=== PATIENT | female | born 1935 | race American Indian/Alaskan Native ===

== ENCOUNTER 2018-05-13 16:53 | Observation (INO) | payer MEDICARE ==
[2018-05-13 16:53] VITALS: BMI 107.6
--- NOTE | 2018-05-13 17:35 | C.PDOC ---
History Of Present Illness 83 y/o female pt with hx of DVT presents to the ER c/o SOB for x1 week. Associated sx includes leg swelling. Pt denies chest pain. Pt takes Coumadin for her DVT. Pt also notes that SOB is worse when walking. Time Seen by Provider: 05/13/18 17:25 Chief Complaint (Nursing): Shortness Of Breath History Per: Patient History/Exam Limitations: no limitations Onset/Duration Of Symptoms: Days (x1 week) Current Symptoms Are (Timing): Still Present Past Medical History Reviewed: Historical Data, Nursing Documentation, Vital Signs Vital Signs: Last Vital Signs Temp 98.4 F 05/13/18 17:03 Pulse 132 H 05/13/18 17:03 Resp 20 05/13/18 17:03 BP 189/83 H 05/13/18 17:03 Pulse Ox 95 05/13/18 17:03 - Medical History PMH: Anemia (Anemia of Chronic disese), Arthritis, Asthma, Atrial Fibrillation, Bronchitis, Deep Vein Thrombosis, HTN, Hypercholesterolemia, Peripheral Edema, Pneumonia (2007), Pulmonary Embolism (subsegmental in 2014. 3 episodes of leg DVT s/p IVC filter ), End Stage Renal Disease, Chronic Kidney Disease, Rheumatoid Arthritis - [facility] Procedures CENTRAL VENOUS CATHETER PLACEMENT WITH GUIDANCE (02/08/15) ESOPHAGOGASTRODUODENOSCOPY [EGD] W/CLOSED BIOPSY (12/16/14) EXCISION OF SACRUM, OPEN APPROACH (03/26/15) INSERTION OF INFUSION DEV INTO SUP VENA CAVA, PERC APPROACH (07/29/15) INTRODUCTION OF SERUM/TOX/VACCINE INTO MUSCLE, PERC APPROACH (03/14/15) PLICATION OF VENA CAVA (11/28/14) SERUM TRANSFUSION NEC (11/28/14) TRANSFER BUTTOCK SUBCU/FASCIA W SKIN, SUBCU, FASCIA, OPEN (03/26/15) Family History: States: Unknown Family Hx - Social History Hx Tobacco Use: No Hx Alcohol Use: No Hx Substance Use: No - Immunization History Hx Tetanus Toxoid Vaccination: No Hx Influenza Vaccination: (not sure) Hx Pneumococcal Vaccination: Yes (12/16/2014) Review Of Systems Except As Marked, All Systems Reviewed And Found Negative. Respiratory: Positive for: Shortness of Breath Physical Exam - Physical Exam Appears: Well, Non-toxic, No Acute Distress Skin: Normal Color, Warm, Dry Head: Normacephalic Eye(s): bilateral: Normal Inspection, PERRL, EOMI Oral Mucosa: Moist Throat: Normal Chest: Symmetrical Cardiovascular: Rhythm Regular, No Murmur Respiratory: Rales (base) Gastrointestinal/Abdominal: Soft, No Tenderness Extremity: Pedal Edema (+2, b/l ) Neurological/Psych: Oriented x3, Normal Speech ED Course And Treatment - Laboratory Results Result Diagrams: 05/13/18 17:39 05/13/18 17:39 ECG Interpretation: Normal Interpretation Of ECG: normal interval; normal axis; non-specific ST/T waves Rate From EC O2 Sat by Pulse Oximetry: 95 (RA) Pulse Ox Interpretation: Normal Medical Decision Making Medical Decision Making: Impression: SOB Plans: -- EKG -- chem labs -- blood work -- CXR Disposition Discussed With : Justin Solis DO Doctor Will See Patient In The: Hospital Counseled Patient/Family Regarding: Studies Performed, Diagnosis - Disposition Disposition Time: 19:00 Condition: STABLE Forms: [facility] (Bel[place]ian) - Clinical Impression Clinical Impression: SOB (shortness of breath) - Scribe Statement The provider has reviewed the documentation as recorded by the Scribe Daria Hendrix Provider Attestation: All medical record entries made by the Scribe were at my direction and personally dictated by me. I have reviewed the chart and agree that the record accurately reflects my personal performance of the history, physical exam, medical decision making, and the department course for this patient. I have also personally directed, reviewed, and agree with the discharge instructions and disposition. Physician Patient Turnover Patient Signed Over To: Justin Solis DO Handoff Comments: pending ct chest r/o pe, reevaluation and disposition.
[2018-05-13 17:42] LABS: BASO # 0.1 K/uL (0.0-0.2); BASO % 0.8 % (0.0-2.0); EOS # 0.2 K/uL (0.0-0.7); EOS % 2.1 % (0.0-4.0); HEMOGLOBIN 13.8 g/dL (11.0-16.0); LYMPH # 1.7 K/uL (1.0-4.3); LYMPH % 19.3 % (20.0-40.0); MEAN CELL VOLUME 97.1 fL (81.0-99.0); MEAN CORPUSCULAR HGB CONC 32.9 g/dL (33.0-37.0); MEAN PLATELET VOLUME 9.7 fL (7.2-11.7); MONO # 0.9 K/uL (0.0-0.8); MONO % 10.5 % (0.0-10.0); NEUT % 67.3 % (50.0-75.0); RBC 4.31 Mil/uL (3.80-5.20); RED CELL DISTRIBUTION WIDTH 14.6 % (11.5-14.5); WHITE BLOOD COUNT 8.9 K/uL (4.8-10.8)
[2018-05-13 17:54] LABS: INR 1.4; PROTHROMBIN TIME 14.8 SECONDS (9.7-12.2)
[2018-05-13 18:02] LABS: ALB/GLOB RATIO 1.3 (1.0-2.1); ALBUMIN 4.2 g/dL (3.5-5.0); CALCIUM 9.6 mg/dl (8.6-10.4)
[2018-05-13 18:10] LABS: TROPONIN I 0.014 ng/mL (0.00-0.120)
[2018-05-13] MEDS ORDERED: Iohexol 300 100 ML IJ ONE (18:47)
[2018-05-13] MEDS ORDERED: MethylPREDNISolone 40 mg Vial IVP STA (22:20)
[2018-05-13] MEDS ORDERED: guaiFENesin 200 mg/10 ml Syrup UD PO PRN (22:21)
[2018-05-14 00:57] LABS: CK-MB 5.29 ng/mL (0.0-3.38); TROPONIN I 0.014 ng/mL (0.00-0.120)
[2018-05-14] MEDS: Albuterol-Ipratrop 3 mg / 0.5 (3 ml) UD INH SCH ×4 (01:30→20:07)
[2018-05-14 06:23] LABS: INR 1.4; PROTHROMBIN TIME 15.3 SECONDS (9.7-12.2)
--- NOTE | 2018-05-14 08:37 | CT ---
Date of service: 05/13/2018 PROCEDURE: CT Chest with contrast (Pulmonary Angiogram) HISTORY: sob COMPARISON: None available. TECHNIQUE: Axial computed tomography images were obtained of the chest in the pulmonary arterial phase of enhancement. Coronal and sagittal reformatted images were created and reviewed. Intravenous contrast dose: Radiation dose: Total exam DLP = 460.63 mGy-cm. This CT exam was performed using one or more of the following dose reduction techniques: Automated exposure control, adjustment of the mA and/or kV according to patient size, and/or use of iterative reconstruction technique. FINDINGS: PULMONARY ARTERIES: Unremarkable. No pulmonary embolism. AORTA: No acute findings. No thoracic aortic aneurysm. No aortic atherosclerotic calcification or mural plaque present. LUNGS: minimal bibasilar fibrotic/disc atelectatic changes. PLEURAL SPACES: Unremarkable. No effusion or pneumothorax. HEART: Unremarkable. No cardiomegaly. No significant pericardial effusion. LYMPH NODES: No lymphadenopathy. BONES, CHEST WALL: Unremarkable. No fracture or destructive lesion OTHER FINDINGS: Unremarkable. IMPRESSION: Minimal bibasilar fibrotic changes and disc of LS static changes. No evidence of pulmonary embolism.
[2018-05-14] MEDS: Pantoprazole 40 mg EC Tab PO SCH (09:58)
[2018-05-14] MEDS: MethylPREDNISolone 40 mg Vial IM SCH ×2 (09:59→21:03)
[2018-05-14] MEDS ORDERED: Enoxaparin 40 mg Syringe SC SCH ×2 (10:00)
--- NOTE | 2018-05-14 10:44 | RAD ---
Date of service: 05/13/2018 PROCEDURE: CHEST RADIOGRAPH, 1 VIEW HISTORY: SOB COMPARISON: 07/30/2015. FINDINGS: LUNGS: The lungs are well inflated and clear. There is moderate pulmonary venous congestion. PLEURA: No pneumothorax or pleural effusion. CARDIOVASCULAR: Mild cardiomegaly. There are mild aortic atherosclerotic calcifications present. OSSEOUS STRUCTURES: Within normal limits for the patient's age. VISUALIZED UPPER ABDOMEN: Normal. OTHER FINDINGS: None. IMPRESSION: No active pulmonary disease.
--- NOTE | 2018-05-14 12:12 | CARD ---
APPROVED REPORT Date of service: 05/13/2018 EKG Measurement Heart [id number] <Conclusion> Normal sinus rhythm Minimal voltage criteria for LVH, may be normal variant Nonspecific T wave abnormality Abnormal ECG
--- NOTE | 2018-05-14 12:27 | CP.PCM.HP ---
Past Patient History - Infectious Disease Hx of Infectious Diseases: None - Past Medical History & Family History Past Medical History?: Yes - Past Social History Smoking Status: Never Smoked - CARDIAC Hx Atrial Fibrillation: Yes Hx Hypercholesterolemia: Yes Hx Hypertension: Yes Hx Peripheral Edema: Yes - PULMONARY Hx Asthma: Yes Hx Bronchitis: Yes Hx Pneumonia: Yes (2007) Hx Pulmonary Embolism: Yes (subsegmental in 2015. 3 episodes of leg DVT s/p IVC filter ) - NEUROLOGICAL Hx Neurological Disorder: No - HEENT Hx HEENT Problems: No - RENAL Hx Chronic Kidney Disease: Yes - ENDOCRINE/METABOLIC Hx Endocrine Disorders: Yes Hx Diabetes Mellitus Type 2: Yes - HEMATOLOGICAL/ONCOLOGICAL Hx Anemia: Yes (Anemia of Chronic disese) - INTEGUMENTARY Hx Dermatological Problems: Yes Other/Comment: bedsore sacral area. - MUSCULOSKELETAL/RHEUMATOLOGICAL Hx Arthritis: Yes Hx Rheumatoid Arthritis: Yes - GASTROINTESTINAL Hx Gastrointestinal Disorders: No - GENITOURINARY/GYNECOLOGICAL Hx Genitourinary Disorders: Yes Hx Incontinence: Yes - PSYCHIATRIC Hx Substance Use: No - SURGICAL HISTORY Hx Surgeries: Yes Other/Comment: ivc filter - ANESTHESIA Hx Anesthesia: Yes Hx Anesthesia Reactions: No Hx Malignant Hyperthermia: No Meds Allergies/Adverse Reactions: Allergies Allergy/AdvReac Type Severity Reaction Status Date / Time No Known Allergies Allergy Verified 07/27/15 15:55 Results - Vital Signs Recent Vital Signs: Last Vital Signs Temp 98.0 F 05/14/18 07:00 Pulse 67 05/14/18 07:33 Resp 18 05/14/18 07:00 BP 150/78 05/14/18 07:00 Pulse Ox 99 05/14/18 12:25 - Labs Result Diagrams: 05/13/18 17:39 05/13/18 17:39 Labs: Laboratory Results - last 24 hr 05/13/18 05/13/18 05/13/18 17:39 17:39 17:39 WBC 8.9 D RBC 4.31 Hgb 13.8 D Hct 41.9 MCV 97.1 MCH 32.0 H MCHC 32.9 L RDW 14.6 H Plt Count 185 MPV 9.7 Neut % (Auto) 67.3 Lymph % (Auto) 19.3 L [place] % (Auto) 10.5 H Eos % (Auto) 2.1 Baso % (Auto) 0.8 Neut # (Auto) 6.0 Lymph # (Auto) 1.7 [place] # (Auto) 0.9 H Eos # (Auto) 0.2 Baso # (Auto) 0.1 PT 14.8 H INR 1.4 APTT 42 H D-Dimer, Quantitative 247 H Sodium 142 Potassium 3.3 L Chloride 105 Carbon Dioxide 28 Anion Gap 12 BUN 29 H Creatinine 1.1 Est GFR ( Amer) 57 Est GFR (Non-Af Amer) 47 POC Glucose (mg/dL) Random Glucose 77 Calcium 9.6 Magnesium 2.2 Total Bilirubin 0.4 AST 64 H ALT 25 Alkaline Phosphatase 109 Total Creatine Kinase CK-MB (Mass) Troponin I 0.0140 NT-Pro-B Natriuret Pep 109 Total Protein 7.6 Albumin 4.2 Globulin 3.3 Albumin/Globulin Ratio 1.3 05/13/18 05/14/18 05/14/18 17:53 00:27 06:04 WBC RBC Hgb Hct MCV MCH MCHC RDW Plt Count MPV Neut % (Auto) Lymph % (Auto) [place] % (Auto) Eos % (Auto) Baso % (Auto) Neut # (Auto) Lymph # (Auto) [place] # (Auto) Eos # (Auto) Baso # (Auto) PT 15.3 H INR 1.4 APTT D-Dimer, Quantitative Sodium Potassium Chloride Carbon Dioxide Anion Gap BUN Creatinine Est GFR ( Amer) Est GFR (Non-Af Amer) POC Glucose (mg/dL) 91 Random Glucose Calcium Magnesium Total Bilirubin AST ALT Alkaline Phosphatase Total Creatine Kinase 466 H CK-MB (Mass) 5.29 H Troponin I 0.0140 NT-Pro-B Natriuret Pep Total Protein Albumin Globulin Albumin/Globulin Ratio
--- NOTE | 2018-05-14 13:14 | CP.PCM.CON ---
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 Shortness of breath worsens with walking. Patient reports leg swelling. Denies fever, chest pain, cough. Medications: Symbicort 2 puff BID, Albuterol 1-2puff q4h, Spiriva 1 inh q12h, zafiralukast 20 qhs, calcitonin, omeprazole 40mg, ASA 81mg, atorvastatin 10mg, irbesartan 150mg, Coumadin 4mg. Allergies: NKDA Surgery: IVC filter 2014 Imaging 05/13 EKG: NSR, t wave abnormalities 05/13 CXR: Moderate pulmonary venous congestion, good inflation, no pneumothorax or pulmonary effusion 05/[address]: no PE, bibasilar fibrotic changes, no effusion or pneumothorax Review of Systems - Review of Systems All systems: reviewed and no additional remarkable complaints except (shortness of breath) Past Patient History - Infectious Disease Hx of Infectious Diseases: None - Past Medical History & Family History Past Medical History?: Yes - Past Social History Smoking Status: Never Smoked - CARDIAC Hx Atrial Fibrillation: Yes Hx Hypercholesterolemia: Yes Hx Hypertension: Yes Hx Peripheral Edema: Yes - PULMONARY Hx Asthma: Yes Hx Bronchitis: Yes Hx Pneumonia: Yes (2007) Hx Pulmonary Embolism: Yes (subsegmental in 2014. 3 episodes of leg DVT s/p IVC filter ) - NEUROLOGICAL Hx Neurological Disorder: No - HEENT Hx HEENT Problems: No - RENAL Hx Chronic Kidney Disease: Yes - ENDOCRINE/METABOLIC Hx Endocrine Disorders: Yes Hx Diabetes Mellitus Type 2: Yes - HEMATOLOGICAL/ONCOLOGICAL Hx Anemia: Yes (Anemia of Chronic disese) - INTEGUMENTARY Hx Dermatological Problems: Yes Other/Comment: bedsore sacral area. - MUSCULOSKELETAL/RHEUMATOLOGICAL Hx Arthritis: Yes Hx Rheumatoid Arthritis: Yes - GASTROINTESTINAL Hx Gastrointestinal Disorders: No - GENITOURINARY/GYNECOLOGICAL Hx Genitourinary Disorders: Yes Hx Incontinence: Yes - PSYCHIATRIC Hx Substance Use: No - SURGICAL HISTORY Hx Surgeries: Yes Other/Comment: ivc filter - ANESTHESIA Hx Anesthesia: Yes Hx Anesthesia Reactions: No Hx Malignant Hyperthermia: No Meds Allergies/Adverse Reactions: Allergies Allergy/AdvReac Type Severity Reaction Status Date / Time No Known Allergies Allergy Verified 07/27/15 15:55 - Medications Medications: Current Medications Albuterol/Ipratropium (Duoneb 3 Mg/0.5 Mg (3 Ml) Ud) 3 ml INH RQ6 [facility] Last Admin: 05/14/18 08:11 Dose: 3 ml Aspirin (Ecotrin) 81 mg PO DAILY [facility] Last Admin: 05/14/18 09:59 Dose: 81 mg Guaifenesin (Robitussin) 200 mg PO Q4H PRN PRN Reason: Cough and congestion Losartan Potassium (Cozaar) 50 mg PO DAILY [facility] Last Admin: 05/14/18 09:58 Dose: 50 mg Methylprednisolone (Solu-Medrol) 40 mg IM Q12 [facility] Last Admin: 05/14/18 09:59 Dose: 40 mg Pantoprazole Sodium (Protonix Ec Tab) 40 mg PO DAILY [facility] Last Admin: 05/14/18 09:58 Dose: 40 mg Rosuvastatin Calcium (Crestor) 5 mg PO HS [facility] Tiotropium [place] (Spiriva Inhalation Handihaler Device) 1 inhaler INH Q12 [facility] Warfarin Sodium (Coumadin) 4 mg PO 1800 [facility] Stop: 05/14/18 18:01 Physical Exam - Head Exam Head Exam: ATRAUMATIC, NORMOCEPHALIC - ENT Exam ENT Exam: Mucous Membranes Moist - Neck Exam Neck exam: Positive for: Normal Inspection - Respiratory Exam Respiratory Exam: Clear to Auscultation Bilateral - Cardiovascular Exam Cardiovascular Exam: REGULAR RHYTHM Results - Vital Signs Recent Vital Signs: Last Vital Signs Temp 98.0 F 05/14/18 07:00 Pulse 67 05/14/18 07:33 Resp 18 05/14/18 07:00 BP 150/78 05/14/18 07:00 Pulse Ox 99 05/14/18 12:25 - Labs Result Diagrams: 05/13/18 17:39 05/13/18 17:39 Labs: Laboratory Results - last 24 hr 05/13/18 05/13/18 05/13/18 17:39 17:39 17:39 WBC 8.9 D RBC 4.31 Hgb 13.8 D Hct 41.9 MCV 97.1 MCH 32.0 H MCHC 32.9 L RDW 14.6 H Plt Count 185 MPV 9.7 Neut % (Auto) 67.3 Lymph % (Auto) 19.3 L [place] % (Auto) 10.5 H Eos % (Auto) 2.1 Baso % (Auto) 0.8 Neut # (Auto) 6.0 Lymph # (Auto) 1.7 [place] # (Auto) 0.9 H Eos # (Auto) 0.2 Baso # (Auto) 0.1 PT 14.8 H INR 1.4 APTT 42 H D-Dimer, Quantitative 247 H Sodium 142 Potassium 3.3 L Chloride 105 Carbon Dioxide 28 Anion Gap 12 BUN 29 H Creatinine 1.1 Est GFR ( Amer) 57 Est GFR (Non-Af Amer) 47 POC Glucose (mg/dL) Random Glucose 77 Calcium 9.6 Magnesium 2.2 Total Bilirubin 0.4 AST 64 H ALT 25 Alkaline Phosphatase 109 Total Creatine Kinase CK-MB (Mass) Troponin I 0.0140 NT-Pro-B Natriuret Pep 109 Total Protein 7.6 Albumin 4.2 Globulin 3.3 Albumin/Globulin Ratio 1.3 05/13/18 05/14/18 05/14/18 17:53 00:27 06:04 WBC RBC Hgb Hct MCV MCH MCHC RDW Plt Count MPV Neut % (Auto) Lymph % (Auto) [place] % (Auto) Eos % (Auto) Baso % (Auto) Neut # (Auto) Lymph # (Auto) [place] # (Auto) Eos # (Auto) Baso # (Auto) PT 15.3 H INR 1.4 APTT D-Dimer, Quantitative Sodium Potassium Chloride Carbon Dioxide Anion Gap BUN Creatinine Est GFR ( Amer) Est GFR (Non-Af Amer) POC Glucose (mg/dL) 91 Random Glucose Calcium Magnesium Total Bilirubin AST ALT Alkaline Phosphatase Total Creatine Kinase 466 H CK-MB (Mass) 5.29 H Troponin I 0.0140 NT-Pro-B Natriuret Pep Total Protein Albumin Globulin Albumin/Globulin Ratio Assessment & Plan (1) Asthma exacerbation Status: Acute Comment: CTA negative for pulmonary embolism. Nebulizer treatment. Inhaled steroids. Peak flow q. shift (2) Shortness of breath Status: Chronic
--- NOTE | 2018-05-14 15:46 | HP ---
CHIEF COMPLAINT: Leg edema. HISTORY OF PRESENT ILLNESS: This is an 83-year-old female with past medical history significant for borderline diabetes, hypertension, hyperlipidemia, atrial fibrillation, DVT, in her usual status of diana. She is ambulatory and independent in activities of daily living. She came in because of leg swelling. She denies any nausea or vomiting. She denies any chest pain. She denies any dyspnea on exertion, orthopnea, or PND. She denies any polyuria, polydipsia, or polyphagia. She denies any hematuria or pyuria. She denies any sneezing, itchy eyes, or itchy nose. PAST MEDICAL HISTORY: Positive for hypertension, COPD, hyperlipidemia, GERD, osteoarthritis, atrial fibrillation on Coumadin. SOCIAL HISTORY: Nonsmoker, non-EtOH user. FAMILY HISTORY: Noncontributory. PHYSICAL EXAMINATION: GENERAL: An elderly female, in no acute distress. VITAL SIGNS: Blood pressure 150/78, pulse 72, respiratory rate 18, temperature 98. SKIN: No rashes. No bruises. No purpura. No petechiae. HEENT: Atraumatic, normocephalic. Negative pallor. Negative jaundice. Extraocular movements are intact. NECK: Supple. No JVD. No lymph node. No thyromegaly. No carotid bruits. CHEST WALL: Bilateral symmetrical expansion. LUNGS: Clear. CARDIOVASCULAR SYSTEM: S1 and S2 regular. No heave. No thrill. ABDOMEN: Soft. Nontender. Bowel sounds are positive. RECTAL AND PELVIC: Deferred. EXTREMITIES: +2 nonpitting edema. No calf tenderness. No swelling. CENTRAL NERVOUS SYSTEM: Awake, alert, oriented x3. ASSESSMENT: 1. Leg edema, swelling. Rule out deep venous thrombosis. 2. Hypertension, poorly controlled. 3. Atrial fibrillation. 4. Chronic obstructive pulmonary disease. PLAN: Venous Doppler. STAT CT of the angio is negative. Monitor the patient. Wai Leiva MD
--- NOTE | 2018-05-14 16:48 | VASCLAB ---
Date of service: 05/14/2018 PROCEDURE: Lower Extremity Venous Duplex Exam. HISTORY: dvt PRIORS: None. TECHNIQUE: Bilateral common femoral, femoral, popliteal and posterior tibial, peroneal and great saphenous veins were evaluated. Flow was assessed with color Doppler, compressibility, assessment of phasic flow and augmentation response. Report prepared by CASSY Espinal, RVT FINDINGS: RIGHT: 1. Common Femoral Vein: 1.1. Compressibility - Fully compressible: Thrombus - None : Flow - Phasic: Augmentation -Normal: Reflux - None. 2. Femoral Vein: 2.1. Compressibility - Fully compressible: Thrombus - None : Flow - Phasic: Augmentation -Normal: Reflux - None. 3. Popliteal Vein: 3.1. Compressibility - Partial: Thrombus - Chronic : Flow - Reduced : Augmentation -Reduced: Reflux - None. 4. Posterior Tibial Vein: 4.1. Compressibility - Fully compressible: Thrombus - None: Flow - Phasic: Augmentation -Normal: Reflux - None. 5. Peroneal Vein: 5.1. Compressibility - Fully compressible: Thrombus - None: Flow - Phasic: Augmentation -Normal: Reflux - None. 6. Great Saphenous Vein: 6.1. Compressibility - Fully compressible: Thrombus - None: Flow - Phasic: Augmentation - Normal: Reflux - None. LEFT: 1. Common Femoral Vein: 1.1. Compressibility - Fully compressible: Thrombus - None: Flow - Phasic: Augmentation -Normal: Reflux - None. 2. Femoral Vein: 2.1. Compressibility - Fully compressible: Thrombus - None: Flow - Phasic: Augmentation -Normal: Reflux - None. 3. Popliteal Vein: 3.1. Compressibility - Fully compressible: Thrombus - None : Flow - Phasic: Augmentation -Normal: Reflux - None. 4. Posterior Tibial Vein: 4.1. Compressibility - Fully compressible: Thrombus - None: Flow - Phasic: Augmentation -Normal: Reflux - None. 5. Peroneal Vein: 5.1. Compressibility - Fully compressible: Thrombus - None: Flow - Phasic: Augmentation -Normal: Reflux - None. 6. Great Saphenous Vein: 6.1. Compressibility - Fully compressible: Thrombus - None: Flow - Phasic: Augmentation - Normal: Reflux - None. OTHER FINDINGS: VERONICA Brandt notified about the findings. 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 Left: No evidence of deep or superficial vein thrombosis of the left lower extremity. Normal valve function noted of the left side.
--- NOTE | 2018-05-14 22:07 | CP.PCM.CON ---
History of Present Illness - History of Present Illness History of Present Illness: CC: Dyspnea 83 y/o female pt with hx of DVT presents to the ER c/o SOB for x1 week. Associated sx includes leg swelling. Pt denies chest pain. Pt takes Coumadin for her DVT. Pt also notes that SOB is worse when walking. Chief Complaint (Nursing): Shortness Of Breath History Per: Patient History/Exam Limitations: no limitations Onset/Duration Of Symptoms: Days (x1 week) Current Symptoms Are (Timing): Still Present Past Medical History Reviewed: Historical Data, Nursing Documentation, Vital Signs Vital Signs: Last Vital Signs Temp 98.4 F 05/13/18 17:03 Pulse 132 H 05/13/18 17:03 Resp 20 05/13/18 17:03 BP 189/83 H 05/13/18 17:03 Pulse Ox 95 05/13/18 17:03 - Medical History PMH: Anemia (Anemia of Chronic disese), Arthritis, Asthma, Atrial Fibrillation, Bronchitis, Deep Vein Thrombosis, HTN, Hypercholesterolemia, Peripheral Edema, Pneumonia (2007), Pulmonary Embolism (subsegmental in 2014. 3 episodes of leg DVT s/p IVC filter ), End Stage Renal Disease, Chronic Kidney Disease, Rheumatoid Arthritis - [facility] Procedures CENTRAL VENOUS CATHETER PLACEMENT WITH GUIDANCE (02/08/15) ESOPHAGOGASTRODUODENOSCOPY [EGD] W/CLOSED BIOPSY (12/16/14) EXCISION OF SACRUM, OPEN APPROACH (03/26/15) INSERTION OF INFUSION DEV INTO SUP VENA CAVA, PERC APPROACH (07/29/15) INTRODUCTION OF SERUM/TOX/VACCINE INTO MUSCLE, PERC APPROACH (03/14/15) PLICATION OF VENA CAVA (11/28/14) SERUM TRANSFUSION NEC (11/28/14) TRANSFER BUTTOCK SUBCU/FASCIA W SKIN, SUBCU, FASCIA, OPEN (03/26/15) Family History: States: Unknown Family Hx - Social History Hx Tobacco Use: No Hx Alcohol Use: No Hx Substance Use: No - Immunization History Hx Tetanus Toxoid Vaccination: No Hx Influenza Vaccination: (not sure) Hx Pneumococcal Vaccination: Yes (12/16/2014) Review Of Systems Except As Marked, All Systems Reviewed And Found Negative. Respiratory: Positive for: Shortness of Breath Physical Exam - Physical Exam Appears: Well, Non-toxic, No Acute Distress Skin: Normal Color, Warm, Dry Head: Normacephalic Eye(s): bilateral: Normal Inspection, PERRL, EOMI Oral Mucosa: Moist Throat: Normal Chest: Symmetrical Cardiovascular: Rhythm Regular, No Murmur Respiratory: Rales (base) Gastrointestinal/Abdominal: Soft, No Tenderness Extremity: Pedal Edema (+2, b/l ) Neurological/Psych: Oriented x3, Normal Speech Past Patient History - Infectious Disease Hx of Infectious Diseases: None - Past Medical History & Family History Past Medical History?: Yes - Past Social History Smoking Status: Never Smoked - CARDIAC Hx Atrial Fibrillation: Yes Hx Hypercholesterolemia: Yes Hx Hypertension: Yes Hx Peripheral Edema: Yes - PULMONARY Hx Asthma: Yes Hx Bronchitis: Yes Hx Pneumonia: Yes (2007) Hx Pulmonary Embolism: Yes (subsegmental in 2015. 3 episodes of leg DVT s/p IVC filter ) - NEUROLOGICAL Hx Neurological Disorder: No - HEENT Hx HEENT Problems: No - RENAL Hx Chronic Kidney Disease: Yes - ENDOCRINE/METABOLIC Hx Endocrine Disorders: Yes Hx Diabetes Mellitus Type 2: Yes - HEMATOLOGICAL/ONCOLOGICAL Hx Anemia: Yes (Anemia of Chronic disese) - INTEGUMENTARY Hx Dermatological Problems: Yes Other/Comment: bedsore sacral area. - MUSCULOSKELETAL/RHEUMATOLOGICAL Hx Arthritis: Yes Hx Rheumatoid Arthritis: Yes - GASTROINTESTINAL Hx Gastrointestinal Disorders: No - GENITOURINARY/GYNECOLOGICAL Hx Genitourinary Disorders: Yes Hx Incontinence: Yes - PSYCHIATRIC Hx Substance Use: No - SURGICAL HISTORY Hx Surgeries: Yes Other/Comment: ivc filter - ANESTHESIA Hx Anesthesia: Yes Hx Anesthesia Reactions: No Hx Malignant Hyperthermia: No Meds Allergies/Adverse Reactions: Allergies Allergy/AdvReac Type Severity Reaction Status Date / Time No Known Allergies Allergy Verified 07/27/15 15:55 - Medications Medications: Current Medications Albuterol/Ipratropium (Duoneb 3 Mg/0.5 Mg (3 Ml) Ud) 3 ml INH RQ6 [facility] Last Admin: 05/14/18 20:07 Dose: 3 ml Aspirin (Ecotrin) 81 mg PO DAILY [facility] Last Admin: 05/14/18 09:59 Dose: 81 mg Guaifenesin (Robitussin) 200 mg PO Q4H PRN PRN Reason: Cough and congestion Losartan Potassium (Cozaar) 100 mg PO DAILY [facility] Methylprednisolone (Solu-Medrol) 40 mg IM Q12 [facility] Last Admin: 05/14/18 21:03 Dose: 40 mg Pantoprazole Sodium (Protonix Ec Tab) 40 mg PO DAILY [facility] Last Admin: 05/14/18 09:58 Dose: 40 mg Rosuvastatin Calcium (Crestor) 5 mg PO HS [facility] Tiotropium [place] (Spiriva Inhalation Handihaler Device) 1 inhaler INH Q12 [facility] Results - Vital Signs Recent Vital Signs: Last Vital Signs Temp 98.8 F 05/14/18 15:00 Pulse 92 H 05/14/18 21:09 Resp 20 05/14/18 15:00 BP 169/72 H 05/14/18 21:09 Pulse Ox 99 05/14/18 16:00 - Labs Result Diagrams: 05/13/18 17:39 05/13/18 17:39 Labs: Laboratory Results - last 24 hr 05/14/18 05/14/18 00:27 06:04 PT 15.3 H INR 1.4 Total Creatine Kinase 466 H CK-MB (Mass) 5.29 H Troponin I 0.0140 Assessment & Plan - Assessment and Plan (Free Text) Assessment: (1) Asthma exacerbation Status: Acute Comment: CTA negative for pulmonary embolism. Nebulizer treatment. Inhaled steroids. Peak flow q. shift (2) Shortness of breath Status: Chronic Most likely pumonary etiology ProBNP, trops are normal ECHO: LVH, DD1 and normal EF
[2018-05-15] MEDS ORDERED: Metoprolol 1 mg/ml Inj IVP ONE (01:05)
[2018-05-15] MEDS: Albuterol-Ipratrop 3 mg / 0.5 (3 ml) UD INH SCH ×3 (01:27→14:20)
[2018-05-15 02:09] VITALS: O2SAT 96
[2018-05-15 08:05] VITALS: BP 167/72; RESP 20; TEMP 97.9
[2018-05-15] MEDS: MethylPREDNISolone 40 mg Vial IM SCH (10:00)
[2018-05-15] MEDS ORDERED: MethylPREDNISolone 40 mg Vial IV SCH (10:00)
[2018-05-15] MEDS: Pantoprazole 40 mg EC Tab PO SCH (10:01)
--- NOTE | 2018-05-15 14:37 | CARD ---
APPROVED REPORT Date of service: 05/14/2018 EXAM: Two-dimensional and M-mode echocardiogram with Doppler and color Doppler. INDICATION Dyspnea Atrial Fibrillation Pulmonary Embolism Congestive Heart Failure RISK FACTORS Hypertension Obesity Hyperlipidemia 2D DIMENSIONS IVSd1.2 (0.7-1.1cm)Aortic Root (2D)3.1 (2.0-3.7cm) LVDd4.7 (3.9-5.9cm)PWd1.2 (0.7-1.1cm) LA Givtfs18 (18-58mL)LVDs3.3 (2.5-4.0cm) FS (%) 29.4 %LVEF (%)56.3 (>50%) LVEF (Narvaez's)58.50 %IVC0.00 cm M-Mode DIMENSIONS Left Atrium (MM)3.59 (2.5-4.0cm)IVSd0.94 (0.7-1.1cm) Aortic Root2.50 (2.2-3.7cm)LVDd5.37 (4.0-5.6cm) Aortic Cusp Exc.1.87 (1.5-2.0cm)PWd0.98 (0.7-1.1cm) FS (%) 45 %LVDs2.97 (2.0-3.8cm) LVEF (%)70 (>50%) Mitral Valve MV E Estkicnj91.9cm/sMV A Stfaceqa938.5cm/sE/A ratio0.7 TDI Lateral E' Peak V7.13cm/sMedial E' Peak V4.48cm/sE/Lateral E'10.2 E/Medial E'16.3 Tricuspid Valve TR Peak Htnghmcf452lf/sTR Peak Gr.[id number] <Conclusion> normal size la,lv & ra rv. normal lv wall motion,thickness,& systolic function with lvef of 65-70%. normal aortic,mitral,tv & pv. mild tr with calculated pulmonary systolic pressures of 40 mm of hg, mild pulmonary hypertension. lv diastolic dysfunction grade one., normal size ivc & aortic root. no pericardial effusion.
--- NOTE | 2018-05-15 14:42 | CP.PCM.PN ---
Subjective - Date & Time of Evaluation Date of Evaluation: 05/15/18 Time of Evaluation: 14:42 - Subjective Subjective: awake, alert, denies sob or chest pains. Objective - Vital Signs/Intake and Output Vital Signs (last 24 hours): Temp Pulse Resp BP Pulse Ox 97.9 F 85 20 167/72 H 96 05/15/18 07:00 05/15/18 07:00 05/15/18 07:00 05/15/18 07:00 05/15/18 07:00 - Medications Medications: Current Medications Albuterol/Ipratropium (Duoneb 3 Mg/0.5 Mg (3 Ml) Ud) 3 ml INH RQ6 [facility] Last Admin: 05/15/18 09:39 Dose: 3 ml Aspirin (Ecotrin) 81 mg PO DAILY [facility] Last Admin: 05/15/18 10:01 Dose: 81 mg Guaifenesin (Robitussin) 200 mg PO Q4H PRN PRN Reason: Cough and congestion Losartan Potassium (Cozaar) 100 mg PO DAILY [facility] Last Admin: 05/15/18 10:00 Dose: 100 mg Methylprednisolone (Solu-Medrol) 40 mg IV Q12 [facility] Last Admin: 05/15/18 10:10 Dose: 40 mg Pantoprazole Sodium (Protonix Ec Tab) 40 mg PO DAILY [facility] Last Admin: 05/15/18 10:01 Dose: 40 mg Rosuvastatin Calcium (Crestor) 5 mg PO HS [facility] Tiotropium [place] (Spiriva Inhalation Handihaler Device) 1 inhaler INH Q12 [facility] - Labs Labs: 05/13/18 17:39 05/13/18 17:39 PT 15.3 SECONDS (9.7-12.2) H 05/14/18 06:04 INR 1.4 05/14/18 06:04 APTT 42 SECONDS (21-34) H 05/13/18 17:39 Assessment and Plan - Assessment and Plan (Free Text) Assessment: 83 year old female admitted with sob, seen and examined. Alert, awake, follows commands, no sob or chest pains. Ruled out pulmonary embolism, plan to discharge home as per DR Leiva. Advised to continue present meds and follow up with PMD in 1 week.
--- NOTE | 2018-05-15 16:00 | CP.PCM.PN ---
Subjective - Date & Time of Evaluation Date of Evaluation: 05/15/18 Time of Evaluation: 15:59 - Subjective Subjective: No new complaints and getting ready to go home. Family bed side. Objective - Vital Signs/Intake and Output Vital Signs (last 24 hours): Temp Pulse Resp BP Pulse Ox 97.9 F 85 20 167/72 H 96 05/15/18 07:00 05/15/18 07:00 05/15/18 07:00 05/15/18 07:00 05/15/18 07:00 - Medications Medications: Current Medications Albuterol/Ipratropium (Duoneb 3 Mg/0.5 Mg (3 Ml) Ud) 3 ml INH RQ6 [facility] Last Admin: 05/15/18 14:20 Dose: 3 ml Aspirin (Ecotrin) 81 mg PO DAILY [facility] Last Admin: 05/15/18 10:01 Dose: 81 mg Guaifenesin (Robitussin) 200 mg PO Q4H PRN PRN Reason: Cough and congestion Losartan Potassium (Cozaar) 100 mg PO DAILY [facility] Last Admin: 05/15/18 10:00 Dose: 100 mg Methylprednisolone (Solu-Medrol) 40 mg IV Q12 [facility] Last Admin: 05/15/18 10:10 Dose: 40 mg Pantoprazole Sodium (Protonix Ec Tab) 40 mg PO DAILY [facility] Last Admin: 05/15/18 10:01 Dose: 40 mg Rosuvastatin Calcium (Crestor) 5 mg PO HS [facility] Tiotropium [place] (Spiriva Inhalation Handihaler Device) 1 inhaler INH Q12 [facility] - Labs Labs: 05/13/18 17:39 05/13/18 17:39 PT 15.3 SECONDS (9.7-12.2) H 05/14/18 06:04 INR 1.4 05/14/18 06:04 APTT 42 SECONDS (21-34) H 05/13/18 17:39
[2018-05-15 16:12] VITALS: PULSE 82
--- NOTE | 2018-05-15 20:45 | PN ---
DATE: 05/15/2018 Covering for Wai Leiva MD. SUBJECTIVE: The patient denies any shortness of breath or chest discomfort. PHYSICAL EXAMINATION: VITAL SIGNS: Blood pressure 167/72, heart rate 85, temperature 97.9, respirations 20. HEENT: Head: Normocephalic. CHEST: Diminished breath sounds over the bases. HEART: S1 and S2 regular. EXTREMITIES: 1+ pitting edema. IMAGING STUDIES: EKG revealed normal sinus rhythm, minimal voltage criteria for LVH with nonspecific T-wave changes. Echocardiographic study revealed normal ejection fraction, mild pulmonary hypertension. Venous Doppler of the lower extremity revealed chronic thrombosis of the right popliteal vein with mild reduction of the venous return. No evidence of DVT of the left lower extremity. Chest CT angiogram revealed minimal bibasilar fibrotic changes, no evidence of pulmonary embolism. ASSESSMENT: 1. 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 2. Hypokalemia. 3. Mild pulmonary hypertension and right-sided failure. 4. Systemic hypertension. PLAN: The patient will be discharged on Cozaar at 100 mg once a day, Crestor at 5 mg once a day, aspirin 81 mg once a day, Protonix 40 mg once a day, and Spiriva one inhalation every 12 hours. The patient will be taken by her daughter and granddaughter vanessa. Pedro Ventura MD
== END 2018-05-15 16:39 | disposition home or self-care (01) ==
LOC: C.ER 16:53 → C.6T 20:36
PROVIDERS: ADMIT Internal Medicine; ATTEND Internal Medicine
DX: J45.901 Unspecified asthma with (acute) exacerbation (principal); E11.22 Type 2 diabetes mellitus with diabetic chronic kidney disease; E78.00 Pure hypercholesterolemia, unspecified; E87.6 Hypokalemia; I12.0 Hypertensive chronic kidney disease with stage 5 chronic kidney disease or end stage renal disease; I27.20 Pulmonary hypertension, unspecified; I48.91 Unspecified atrial fibrillation; I82.431 Acute embolism and thrombosis of right popliteal vein; K21.9 Gastro-esophageal reflux disease without esophagitis; N18.6 End stage renal disease; M06.9 Rheumatoid arthritis, unspecified; Z79.01 Long term (current) use of anticoagulants; Z86.711 Personal history of pulmonary embolism; E78.5 Hyperlipidemia, unspecified; Z87.01 Personal history of pneumonia (recurrent); Z86.718 Personal history of other venous thrombosis and embolism
CPT/HCPCS: 36415; 71045; 71275; 80053; 82948; 83735; 83880; 84484; 85025; 85378; 85610; 85730; 93005; 93306; 93970; 94640; 97110; 97116; 97161; 99285; G0378; G8978; G8979; J2920; Q9967